=== PATIENT | male | born 1985 | race Caucasian/White ===

== ENCOUNTER 2018-04-28 00:30 | Emergency (ER) | payer SELFPAY ==
[~2018-04-28] VITALS: Ht 180.3 cm; Wt 91.7 kg
[2018-04-28 00:36] VITALS: BP 140/91; PULSE 74; RESP 18; TEMP 97.9; O2SAT 97
[2018-04-28] MEDS ORDERED: SODIUM CHLORIDE 0.9% FLUSH 10 ML FLUSH IVF PRN (01:00)
[2018-04-28] MEDS ORDERED: RESP: ALBUTEROL 2.5 MG/3 ML NEB (SCH) INH ONE (01:00)
--- NOTE | 2018-04-28 01:00 | PD ---
HPI Chief Complaint: Respiratory Symptoms Time Seen by Provider: 00:48 Travel History International Travel<30 days: No Contact w/Intl Traveler<30days: No Traveled to known affect area: No History of Present Illness HPI Patient is a 32-year-old male with no medical problems, presents the emergency room with complaints of shortness of breath. Patient reports that he was hanging out and has been feeling short of breath for the past few hours. Patient reports that he is able to breathe but reports difficulty with taking a deep breath. Patient denies smoking cigarettes currently but did smoke in the past, denies using any drugs, denies any chest pain at this time. Patient with no history of PE or DVT. Patient denies any recent travels or trips. Patient denies any recent surgeries. Patient denies any cough or congestion, patient with no other complaints at this time. PFSH Past Medical History Medical History: Denies Significant Hx Diminished Hearing: No Tetanus Vaccination: Unknown Influenza Vaccination: No Past Surgical History Other Surgery: Yes (right hip) Social History Alcohol Use: Yes (occa.) Tobacco Use: Yes (1.5 can dip daily) Substance Use: No Allergies-Medications (Allergen,Severity, Reaction): Coded Allergies: No Known Allergies (Unverified , 04/28/18) Reported Meds & Prescriptions Reported Meds & Active Scripts Active Review of Systems General / Constitutional: No: Fever Eyes: No: Visual changes HENT: No: Headaches Cardiovascular: No: Chest Pain or Discomfort, Palpitations, Irregular Rhythm Respiratory: Positive: Shortness of Breath, No: Cough Gastrointestinal: No: Abdominal Pain Genitourinary: No: Dysuria Musculoskeletal: No: Pain Skin: No Rash Neurologic: No: Weakness Psychiatric: No: Depression Endocrine: No: Polydipsia Hematologic/Lymphatic: No: Easy Bruising Physical Exam Narrative GENERAL: Well appearing, nad SKIN: Focused skin assessment warm/dry. HEAD: Atraumatic. Normocephalic. EYES: Pupils equal and round. No scleral icterus. No injection or drainage. ENT: No nasal bleeding or discharge. Mucous membranes pink and moist. NECK: Trachea midline. No JVD. CARDIOVASCULAR: Regular rate and rhythm. No murmur appreciated. RESPIRATORY: No accessory muscle use. Clear to auscultation. Breath sounds equal bilaterally. GASTROINTESTINAL: Abdomen soft, non-tender, nondistended. Hepatic and splenic margins not palpable. MUSCULOSKELETAL: No obvious deformities. No clubbing. No cyanosis. No edema. NEUROLOGICAL: Awake and alert. No obvious cranial nerve deficits. Motor grossly within normal limits. Normal speech. PSYCHIATRIC: Appropriate mood and affect; insight and judgment normal. Data Data Last Documented VS Vital Signs Date Time Temp Pulse Resp B/P (MAP) Pulse Ox O2 Delivery O2 Flow Rate FiO2 04/28/18 01:15 17 97 Room Air 04/28/18 00:36 97.9 74 Orders Orders Basic Metabolic Panel (Bmp) (04/28/18 00:51) Complete Blood Count With Diff (04/28/18 00:51) D-Dimer (04/28/18 00:51) Ecg Monitoring (04/28/18 00:51) Iv Access Insert/Monitor (04/28/18 00:51) Oximetry (04/28/18 00:51) Sodium Chloride 0.9% Flush (Ns Flush) (04/28/18 01:00) Chest, Pa & Lat (04/28/18 00:51) Albuterol Neb (Albuterol Neb) (04/28/18 01:00) Labs Laboratory Tests Test 04/28/18 01:00 White Blood Count 5.0 TH/MM3 Red Blood Count 4.97 MIL/MM3 Hemoglobin 15.6 GM/DL Hematocrit 44.0 % Mean Corpuscular Volume 88.7 FL Mean Corpuscular Hemoglobin 31.5 PG Mean Corpuscular Hemoglobin Concent 35.5 % Red Cell Distribution Width 12.0 % Platelet Count 232 TH/MM3 Mean Platelet Volume 7.9 FL Neutrophils (%) (Auto) 44.7 % Lymphocytes (%) (Auto) 44.6 % Monocytes (%) (Auto) 8.6 % Eosinophils (%) (Auto) 1.6 % Basophils (%) (Auto) 0.5 % Neutrophils # (Auto) 2.2 TH/MM3 Lymphocytes # (Auto) 2.3 TH/MM3 Monocytes # (Auto) 0.4 TH/MM3 Eosinophils # (Auto) 0.1 TH/MM3 Basophils # (Auto) 0.0 TH/MM3 CBC Comment DIFF FINAL Differential Comment D-Dimer Quantitative (PE/DVT) LESS THAN 0.19 MG/L FEU Blood Urea Nitrogen 17 MG/DL Creatinine 0.84 MG/DL Random Glucose 99 MG/DL Calcium Level 8.9 MG/DL Sodium Level 140 MEQ/L Potassium Level 3.7 MEQ/L Chloride Level 107 MEQ/L Carbon Dioxide Level 25.7 MEQ/L Anion Gap 7 MEQ/L Estimat Glomerular Filtration Rate 106 ML/MIN MDM Medical Decision Making Medical Screen Exam Complete: Yes Emergency Medical Condition: Yes Medical Record Reviewed: Yes Interpretation(s) Vital Signs Date Time Temp Pulse Resp B/P (MAP) Pulse Ox O2 Delivery O2 Flow Rate FiO2 04/28/18 00:47 17 97 Room Air 04/28/18 00:36 97.9 74 18 140/91 (107) 97 Differential Diagnosis Pulmonary embolism, pneumothorax, costochondritis, pneumonia, anxiety Narrative Course 32-year-old male who presents the emergency room with complaints of difficulty with taking deep breath which began a few hours prior to arrival to the emergency room. Vital Signs Date Time Temp Pulse Resp B/P (MAP) Pulse Ox O2 Delivery O2 Flow Rate FiO2 04/28/18 00:47 17 97 Room Air 04/28/18 00:36 97.9 74 18 140/91 (107) 97 On examination, vital signs are stable, patient has a pulse ox of 97% on room air. Patient does not appear to be in respiratory distress, he is talking in full sentences. During the course of the patients emergency department visit, the patients history, examination, and differential diagnosis were reviewed with the patient. The patient was placed on a conveyor monitor with oximetry and frequent blood pressure monitoring. The patient had an IV access obtained and blood work sent for analysis. The patient was initially provided a nebulizer treatment. The patients laboratory studies were reviewed and remarkable for CBC & BMP Diagram 04/28/18 01:00 Calcium Level 8.9 Radiology studies were reviewed and remarkable for Last Impressions Chest X-Ray 04/28/18 0051 Signed Impressions: CONCLUSION: No active disease. CBC as well as BMP with no acute abnormalities. Chest x-ray shows no acute disease. D-dimer is less than 0.19 Patient was reevaluated, patient reports that he is feeling much better. Patient requests to be discharged as he has a fishing tournament at 3:30 AM, reports that [place]. Patient reports that he thinks that he feels anxious at this fishing tournament. Patient will follow- up with his primary care doctor and will return to the emergency room as needed. Diagnosis Primary Impression: Anxiety Additional Impression: Shortness of breath Patient Instructions: General Instructions Additional Instructions: Please provide patient with a copy of their lab work and studies at discharge* * Please follow up with your primary care doctor in 2-3 days Return to the ER if symptoms worsen or progress Return to the ER as needed Disposition: 01 DISCHARGE HOME Condition: Stable Dorys Bermudez DO Apr 28, 2018 01:00
[2018-04-28 01:15] VITALS: RESP 17; O2SAT 97
--- NOTE | 2018-04-28 01:35 | RADRPT ---
EXAM DATE: 04/28/2018 1:22 AM EDT AGE/SEX: 32 years / Male INDICATIONS: Shortness of breath. CLINICAL DATA: This is the patient's initial encounter. Patient reports that signs and symptoms have been present for 1 day and indicates a pain score of 0/10. MEDICAL/SURGICAL HISTORY: None. None. COMPARISON: No prior exams available for comparison. FINDINGS: PA and lateral views of the chest demonstrate the lungs to be symmetrically aerated without evidence of mass, infiltrate or effusion. The cardiomediastinal contours are unremarkable. Osseous structures are intact. CONCLUSION: No active disease. Electronically signed by: Ghanshyam Samuel MD 04/28/2018 1:34 AM EDT
[2018-04-28 01:51] LABS: BICARBONATE 25.7 MEQ/L (21.0-32.0); CALCIUM 8.9 MG/DL (8.5-10.1)
[2018-04-28 01:53] LABS: AUTOMATED NEUTROPHIL # 2.2 TH/MM3 (1.8-7.7); BASOPHIL % 0.5 % (0.0-2.0); EOSINOPHIL # 0.1 TH/MM3 (0-0.4); EOSINOPHIL % 1.6 % (0.0-4.0); HEMOGLOBIN 15.6 GM/DL (13.0-17.0); LYMPH % 44.6 % (9.0-44.0); LYMPHOCYTE # 2.3 TH/MM3 (1.0-4.8); MEAN CELL VOLUME 88.7 FL (80.0-100.0); MEAN CORPUSCULAR HEMOGLOBIN 31.5 PG (27.0-34.0); MEAN CORPUSCULAR HGB CONC 35.5 % (32.0-36.0); MEAN PLATELET VOLUME 7.9 FL (7.0-11.0); MONO % 8.6 % (0.0-8.0); MONOCYTE # 0.4 TH/MM3 (0-0.9); NEUT % 44.7 % (16.0-70.0); PLATELET COUNT 232 TH/MM3 (150-450); RED BLOOD COUNT 4.97 MIL/MM3 (4.50-5.90)
[2018-04-28 01:55] LABS: CREATININE 0.84 MG/DL (0.60-1.30)
[2018-04-28 02:23] VITALS: BP 153/90
== END 2018-04-28 02:25 | disposition home or self-care (01) ==
LOC: PHED 00:30
DX: F41.9 Anxiety disorder, unspecified (principal); R06.02 Shortness of breath; F17.290 Nicotine dependence, other tobacco product, uncomplicated
CPT/HCPCS: 71046; 80048; 85025; 85379; 94664; 99284; J7613